=== PATIENT | female | born 1955 | race Caucasian/White ===

== ENCOUNTER 2018-11-09 11:23 | Day surgery (SDC) | payer BC ==
[~2018-11-09 11:23] MED LIST: Buffered Lidocaine 1% SYRIN* 1 ML/SYRINGE INTRADERM ONE; Lactated Ringers 1000 ML Bag* 1,000 ML IV SCH; Sodium Citrate/Citric Acid* 15 ML UDC PO ONE
[2018-11-09] MEDS ORDERED: Buffered Lidocaine 1% SYRIN* 1 ML/SYRINGE INTRADERM ONE (12:11)
[2018-11-09] MEDS ORDERED: Sodium Citrate/Citric Acid* 15 ML UDC ONE (12:11)
[2018-11-09] MEDS ORDERED: Oxymetazoline 0.05% NASAL SPR* 15 ML BTL ONE ×2 (12:40→13:34)
[2018-11-09] MEDS ORDERED: Lidocaine 4% TOPICAL* 50 ML TOP.SOLN ONE (13:34)
[2018-11-09] MEDS ORDERED: Lidocaine 1% w EPI 1:100,000* 30 ML VIAL ONE (13:34)
[2018-11-09] MEDS ORDERED: Propofol* 10 MG/ML 20 ML BTL ONE (13:48)
[2018-11-09] MEDS ORDERED: Lidocaine 2% PF * 5 ML VIAL ONE (13:49)
[2018-11-09] MEDS ORDERED: Succinylcholine* 20 MG/ML 10 ML VIAL ONE (13:49)
[2018-11-09] MEDS ORDERED: fentaNYL* 50 MCG/ML 2 ML VIAL (100 MCG VIAL) ONE ×2 (13:50→15:08)
[2018-11-09] MEDS ORDERED: Dexamethasone IV* 4 MG/ML 1 ML (4 MG) ONE (14:45)
[2018-11-09] MEDS ORDERED: Ondansetron INJ* 2 MG/ML VIAL IV PRN (14:52)
[2018-11-09] MEDS ORDERED: Naloxone* 0.4 MG/ML 1 ML VIAL IV PRN (14:52)
[2018-11-09] MEDS: fentaNYL* 50 MCG/ML 2 ML VIAL (100 MCG VIAL) IV PRN ×2 (15:09→15:53)
--- NOTE | 2018-11-09 15:32 | OP ---
DATE OF OPERATION: 11/09/18 - [facility] DATE OF : 53 ATTENDING SURGEON: Palmer Winters MD LIAISON ENGINEER: None. ANESTHESIA: General. PRE-OP DIAGNOSIS: Chronic maxillary sinusitis on the left. POST-OP DIAGNOSIS: Chronic maxillary sinusitis on the left. OPERATIVE PROCEDURE: Endoscopic left maxillary antrostomy with removal of tissue. ESTIMATED BLOOD LOSS: Less than 25 cc. SPECIMENS: Left maxillary sinus contents as well as cultures of left maxillary sinus. DESCRIPTION OF PROCEDURE: This is a 63-year-old woman with bronchiectasis, who was recently noted to have evidence of chronic left maxillary sinusitis. It was felt to be important to remove this potential source of respiratory inflammation. On 11/09/18, the patient was brought to the operating room, general anesthesia was induced, and an oral endotracheal tube was placed. The patient was draped. The time-out was performed. The left nasal cavity had been previously decongested with Afrin. Additional Afrin and 4% lidocaine were placed into the left nasal cavity on small pledgets. A 1% lidocaine with 1:100, 000 epinephrine was used to infiltrate the left middle turbinate, the left lateral nasal wall, and the left inferior turbinate. Once adequate time had been allotted for vasoconstriction, the procedure was begun. The middle turbinate was medialized to provide access to the middle meatus. Uncinate process was taken down. There was purulent material streaming out of the natural ostium of the maxillary sinus which was then cannulated with a blunt tip probe and expanded with that probe as well as a combination of straight and back angle through cutting instrumentation. Once the sinus was opened more widely, cultures were taken, the sinus was then copiously irrigated with saline. The middle turbinate was bolgerized and Stammberger Sinu-Foam gel was placed into the middle meatus to prevent scarring. The patient was then returned to the care of the anesthesiologist, extubated, and delivered to PACU in stable condition. [id number] #: [id number] MTDD
[2018-11-09 16:22] VITALS: BP 155/83
== END 2018-11-09 16:29 | disposition home or self-care (01) ==
LOC: OR 11:23
PROVIDERS: ATTEND Otolaryngology
DX: J32.0 Chronic maxillary sinusitis (principal)
CPT/HCPCS: 87070; 87073; 87077; 87186; 87205; 88305; A9270-GY; J0330; J1100; J2704; J3010